=== PATIENT | male | born 1980 | race Caucasian/White ===

== ENCOUNTER 2016-05-09 | Emergency (ER) | payer SELFPAY ==
--- NOTE | 2016-05-09 23:11 | ED ---
Skin/Abscess/FB HPI - General Chief complaint: Skin/Abscess/Foreign Body Stated complaint: Leg/Cysts Time Seen by Provider: 05/09/16 23:02 Source: patient, RN notes reviewed Mode of arrival: ambulatory Limitations: no limitations - History of Present Illness Initial comments: Patient is a 35-year-old male presents to the emergency room for evaluation of left groin abscess. Patient states he noticed a small lump forming in his right groin about a week ago and a few days later he noticed a lump forming in his left groin area. Patient states the lump in his left groin has gotten larger and more red and more painful to palpate. Patient denies any history of abscesses. Patient denies history of MRSA. Patient denies any fevers or chills. Patient states he's having significant pain when he presses over the area or when he is standing and walking. Patient denies any other symptoms or complaints. Patient denies taking anything for pain. - Related Data Home Medications Medication Instructions Recorded Confirmed Aspirin/Acetaminophen/Caffeine 1 - 2 tab PO BID PRN 05/09/16 05/09/16 [Excedrin Migraine Caplet] D-Methorphan/Acetamin/Doxylamn 5 ml PO Q6H PRN 05/09/16 05/09/16 [Vicks Nyquil Cold & Flu Liquid] Phenylephrine/Dm/Acetaminop/GG 5 ml PO Q6H PRN 05/09/16 05/09/16 [Vicks Dayquil Severe Cold-Flu] Previous Rx's Medication Instructions Recorded HYDROcodone/APAP 5-325MG [[place] 1 tab PO Q6HR PRN #15 tab 05/09/16 5-325] Sulfamethox-Tmp 800-160Mg [Bactrim 2 each PO Q12HR #56 tab 05/09/16 Ds] Allergies Allergy/AdvReac Type Severity Reaction Status Date / Time No Known Allergies Allergy Verified 05/09/16 23:05 Review of Systems ROS Statement: Those systems with pertinent positive or pertinent negative responses have been documented in the HPI. ROS Other: All systems not noted in ROS Statement are negative. Past Medical History Past Medical History: No Reported History History of Any Multi-Drug Resistant Organisms: None Reported Past Surgical History: No Surgical Hx Reported Past Psychological History: Anxiety Smoking Status: Current every day smoker Past Alcohol Use History: None Reported Past Drug Use History: Marijuana General Exam - General Exam Comments Initial Comments: Sitting in exam room, no acute distress. Limitations: no limitations General appearance: alert, in no apparent distress Head exam: Present: atraumatic, normocephalic, normal inspection Eye exam: Present: normal appearance ENT exam: Present: normal exam Neck exam: Present: normal inspection Respiratory exam: Present: normal lung sounds bilaterally. Absent: respiratory distress Cardiovascular Exam: Present: regular rate, normal rhythm, normal heart sounds Back exam: Present: normal inspection Neurological exam: Present: alert, oriented X3, CN II-XII intact, normal gait Psychiatric exam: Present: normal affect, normal mood Skin exam: Present: warm, dry, intact, other (2 cm abscess in left medial upper thigh. Fluctuance on palpation. No surrounding erythema. No drainage noted.) Course Vital Signs 05/09/16 05/09/16 22:44 23:58 Temperature 97.3 F L 97.6 F Pulse Rate 74 75 Respiratory 18 18 Rate Blood Pressure 128/68 114/85 O2 Sat by Pulse 96 96 Oximetry Procedures - Incision & Drainage Consent Obtained: verbal consent Site: other (left groin) Size (cm): 2 Anesthetic Used: lidocaine 1% Amount (mLs): 2 I&D Cleaning Method: Betadine Sterile Field Used?: No Scalpel Used: #11 I&D Drainage Obtained: Pus, Blood Patient Tolerated Procedure: well, no complications Medical Decision Making - Medical Decision Making Patient is a 35 -year-old male since emergency room for evaluation of left upper thigh abscess. Abscess was incised and drained. Patient placed on antibiotics. Advised patient to follow-up with his primary care provider for reevaluation in 1 to 2 days. Patient states he understands everything that was discussed with him. Return parameters discussed. Case discussed with Dr. Christian. Disposition Clinical Impression: Abscess of left groin Disposition: HOME SELF-CARE Condition: Good Instructions: Abscess Incision and Drainage (ED), Abscess (ED) Additional Instructions: Warm compresses. Take antibiotics as directed. Please follow up with primary care provider in 1-2 days for reevaluation. If any new symptom arises, symptoms worsen or fever develops, return to ER as soon as possible. Prescriptions: HYDROcodone/APAP 5-325MG [[place] 5-325] 1 tab PO Q6HR PRN #15 tab PRN Reason: Pain Sulfamethox-Tmp 800-160Mg [Bactrim Ds] 2 each PO Q12HR #56 tab Referrals: None,Stated [Primary Care Provider] - 1-2 days Time of Disposition: 23:37
== END 2016-05-10 00:11 | disposition home or self-care (01) ==
CPT/HCPCS: 10060; 99282

== ENCOUNTER 2016-06-05 20:42 | Emergency (ER) | payer SELFPAY ==
--- NOTE | 2016-06-05 21:27 | ED ---
Fever HPI - General Chief Complaint: Fever Stated Complaint: Fever Time Seen by Provider: 06/05/16 21:11 Source: patient, RN notes reviewed Mode of arrival: ambulatory Limitations: no limitations - History of Present Illness Initial Comments: 35-year-old male presents emergency Department chief complaint fever. Patient states that he's had fever, body aches, congestion last 24 hours. Patient states is taking acetaminophen and some [id number] cough and cold medications. Patient denies any sick contacts. Patient states she has no shortness of breath this time. States his cough is productive. Patient denies ear pain, sore throat. Patient denies any neck pain or neck stiffness. Patient denies any abdominal or GI symptoms. - Related Data Home Medications Medication Instructions Recorded Confirmed Aspirin/Acetaminophen/Caffeine 1 tab PO BID PRN 05/09/16 06/05/16 [Excedrin Migraine Caplet] D-Methorphan/PE/Acetaminophen 1 tab PO DAILY PRN 06/05/16 06/05/16 [Tylenol Cold Max Day Caplet] Previous Rx's Medication Instructions Recorded Oseltamivir [Tamiflu] 75 mg PO Q12HR #10 cap 06/05/16 Allergies Allergy/AdvReac Type Severity Reaction Status Date / Time No Known Allergies Allergy Verified 06/05/16 21:02 Review of Systems ROS Statement: Those systems with pertinent positive or pertinent negative responses have been documented in the HPI. ROS Other: All systems not noted in ROS Statement are negative. Past Medical History Past Medical History: No Reported History History of Any Multi-Drug Resistant Organisms: None Reported Past Surgical History: No Surgical Hx Reported Past Psychological History: Anxiety Smoking Status: Current every day smoker Past Alcohol Use History: None Reported Past Drug Use History: None Reported General Exam Limitations: no limitations General appearance: alert, in no apparent distress Head exam: Present: atraumatic, normocephalic, normal inspection Eye exam: Present: normal appearance, PERRL, EOMI. Absent: scleral icterus, conjunctival injection, periorbital swelling ENT exam: Present: normal exam, normal oropharynx, mucous membranes moist, TM's normal bilaterally Neck exam: Present: normal inspection, full ROM. Absent: tenderness, meningismus, lymphadenopathy Respiratory exam: Present: normal lung sounds bilaterally. Absent: respiratory distress, wheezes, rales, rhonchi, stridor Cardiovascular Exam: Present: normal rhythm, tachycardia, normal heart sounds. Absent: systolic murmur, diastolic murmur, rubs, gallop, clicks GI/Abdominal exam: Present: soft, normal bowel sounds. Absent: distended, tenderness, guarding, rebound, rigid Back exam: Absent: CVA tenderness (R), CVA tenderness (L) Neurological exam: Present: alert, oriented X3, CN II-XII intact Skin exam: Present: warm, dry, intact, normal color. Absent: rash Course Vital Signs 06/05/16 06/05/16 20:48 21:15 Temperature 99.9 F H Pulse Rate 108 H Respiratory 18 18 Rate Blood Pressure 128/71 O2 Sat by Pulse 95 Oximetry Medical Decision Making - Medical Decision Making 35-year-old male presented for fever cough congestion. Patient has influenza A. Disposition Clinical Impression: Influenza A Disposition: HOME SELF-CARE Condition: Stable Instructions: Influenza (ED) Additional Instructions: Please return to the Emergency Department if symptoms worsen or any other concerns. Prescriptions: Oseltamivir [Tamiflu] 75 mg PO Q12HR #10 cap Time of Disposition: 21:33
--- NOTE | 2016-06-05 21:45 | XR ---
EXAMINATION TYPE: XR chest 2V DATE OF EXAM: 06/05/2016 9:32 PM COMPARISON: NONE HISTORY: Cough TECHNIQUE: Frontal and lateral views of the chest are obtained. FINDINGS: There is no focal air space opacity, pleural effusion, or pneumothorax seen. The cardiac silhouette size is within normal limits. The osseous structures are intact. IMPRESSION: No acute cardiopulmonary process.
[2016-06-05 23:19] VITALS: BP 117/70; PULSE 105; RESP 16; TEMP 102
== END 2016-06-05 21:46 | disposition home or self-care (01) ==
LOC: EC 20:42
DX: J11.1 Influenza due to unidentified influenza virus with other respiratory manifestations (principal); Z79.899 Other long term (current) drug therapy; F17.200 Nicotine dependence, unspecified, uncomplicated
CPT/HCPCS: 71020; 87502; 99283

== ENCOUNTER 2016-10-19 17:04 | Emergency (ER) | payer BC ==
[2016-10-19 17:17] VITALS: BP 126/78; PULSE 88; RESP 18; TEMP 97.2
[2016-10-19] MEDS ORDERED: IBUPROFEN 600 MG STARTER PACK 4 TAB BTL PO STA (17:29)
--- NOTE | 2016-10-19 17:29 | ED ---
Skin/Abscess/FB HPI - General Chief complaint: Skin/Abscess/Foreign Body Stated complaint: bug bites Time Seen by Provider: 10/19/16 17:23 Source: patient, RN notes reviewed Mode of arrival: ambulatory Limitations: no limitations - History of Present Illness Initial comments: 35-year-old male presents emergency Department chief complaint of bug bite to the left ankle. Patient states it started yesterday. Patient states he had some drainage from it today. Patient states that he has noticed some pain to the area. Patient states it looked like a bug bite and then yesterday got a little more red and swollen so he was concerned. Patient denies any history of MRSA or anything like this in the past. Patient denies any recent fever, chills , shortness of breath, chest pain, back pain, abdominal pain, nausea vomiting, numbness or tingling, dysuria or hematuria, constipation or diarrhea, headaches or visual changes, or any other current symptoms. - Related Data Home Medications Medication Instructions Recorded Confirmed Aspirin/Acetaminophen/Caffeine 1 tab PO BID PRN 05/09/16 06/05/16 [Excedrin Migraine Caplet] D-Methorphan/PE/Acetaminophen 1 tab PO DAILY PRN 06/05/16 06/05/16 [Tylenol Cold Max Day Caplet] Previous Rx's Medication Instructions Recorded Oseltamivir [Tamiflu] 75 mg PO Q12HR #10 cap 06/05/16 Cephalexin [Keflex] 500 mg PO Q6HR #40 cap 10/19/16 Allergies Allergy/AdvReac Type Severity Reaction Status Date / Time No Known Allergies Allergy Verified 10/19/16 17:17 Review of Systems ROS Statement: Those systems with pertinent positive or pertinent negative responses have been documented in the HPI. ROS Other: All systems not noted in ROS Statement are negative. Past Medical History Past Medical History: No Reported History History of Any Multi-Drug Resistant Organisms: None Reported Past Surgical History: No Surgical Hx Reported Past Psychological History: Anxiety Smoking Status: Current every day smoker Past Alcohol Use History: None Reported Past Drug Use History: None Reported General Exam - General Exam Comments Initial Comments: General: The patient is awake and alert, in no distress, and does not appear acutely ill. Neck: The neck is supple, there is no tenderness. Cardiovascular: There is a regular rate and rhythm. No murmur, rub or gallop is appreciated. Respiratory: Lungs are clear to auscultation, respirations are non-labored, breath sounds are equal. No wheezes, stridor, rales, or rhonchi. Musculoskeletal: Sensation intact. 2+ pulses of the left lower extremity. Full range of motion of left knee and left ankle. Patient does appear to have a regular place of erythema to the anterior left simpson that does appear to be cellulitic. Neurological: CN II-XII intact, There are no obvious motor or sensory deficits. Coordination appears grossly intact. Speech is normal. Skin: Skin is warm and dry and no rashes or lesions are noted. Psychiatric: Normal mood and affect. Limitations: no limitations Course Vital Signs 10/19/16 17:14 Temperature 97.2 F L Pulse Rate 88 Respiratory 18 Rate Blood Pressure 126/78 O2 Sat by Pulse 98 Oximetry Medical Decision Making - Medical Decision Making 35-year-old male presents emergency Department with chief complaint of left insect bite but does appear to have infection. This time we will start the patient on antibiotics. We discussed care follow-up return parameters. Patient states that he stated he understood. pt will Discharged home. Disposition Clinical Impression: Infected insect bite Disposition: HOME SELF-CARE Condition: Stable Instructions: Insect Bite or Sting (ED) Additional Instructions: Please use medication as discussed. Please follow up with family doctor if symptoms have not improved over the next two days. Please return to the emergency room if your symptoms increase or worsen or for any other concerns. Prescriptions: Cephalexin [Keflex] 500 mg PO Q6HR #40 cap Referrals: Nhung Kramer MD [STAFF PHYSICIAN] - 1-2 days Time of Disposition: 17:29
== END 2016-10-19 17:30 | disposition home or self-care (01) ==
LOC: EC 17:04
DX: S90.562A Insect bite (nonvenomous), left ankle, initial encounter (principal); L08.9 Local infection of the skin and subcutaneous tissue, unspecified; F17.200 Nicotine dependence, unspecified, uncomplicated; W57.XXXA Bitten or stung by nonvenomous insect and other nonvenomous arthropods, initial encounter
CPT/HCPCS: 99282

== ENCOUNTER 2016-10-23 20:12 | Emergency (ER) | payer BC ==
[2016-10-23] MEDS ORDERED: cefTRIAXone 1,000 MG VIAL (IM USE) IM STA (21:11)
[2016-10-23] MEDS ORDERED: SULFAMETH-TMP DS STARTER PACK 2 TAB BTL PO STA (21:11)
--- NOTE | 2016-10-23 21:12 | ED ---
Skin/Abscess/FB HPI - General Chief complaint: Skin/Abscess/Foreign Body Stated complaint: insect bite Time Seen by Provider: 10/23/16 20:46 Source: patient, RN notes reviewed, old records reviewed Mode of arrival: ambulatory Limitations: no limitations - History of Present Illness Initial comments: This is a 35 year old male with CC of a bug bite on right bicep for one day. Patient reports that over the past 12 hours he has noticed the redness starting to spread. He reports he was seen on of last week for a similiar complaint of a infected bite over the left leg. Patient states that he is taking keflex at this time. Patient states he still has more of the prescripiton left. Patient denies any fever, chills, chest pain, peripheral paresthesias, decreaed range of motion. - Related Data Home Medications Medication Instructions Recorded Confirmed Aspirin/Acetaminophen/Caffeine 1 tab PO BID PRN 05/09/16 10/23/16 [Excedrin Migraine Caplet] Previous Rx's Medication Instructions Recorded Cephalexin [Keflex] 500 mg PO Q6HR #40 cap 10/19/16 Sulfamethox-Tmp 800-160Mg [Bactrim 2 tab PO Q12HR #40 tab 10/23/16 DS 800-160 mg] Allergies Allergy/AdvReac Type Severity Reaction Status Date / Time No Known Allergies Allergy Verified 10/23/16 20:56 Review of Systems ROS Statement: Those systems with pertinent positive or pertinent negative responses have been documented in the HPI. ROS Other: All systems not noted in ROS Statement are negative. Past Medical History Past Medical History: No Reported History History of Any Multi-Drug Resistant Organisms: None Reported Past Surgical History: No Surgical Hx Reported Past Psychological History: Anxiety Smoking Status: Current every day smoker Past Alcohol Use History: Occasional Past Drug Use History: None Reported General Exam Limitations: no limitations General appearance: alert, in no apparent distress Head exam: Present: atraumatic, normocephalic, normal inspection Eye exam: Present: normal appearance, PERRL, EOMI. Absent: scleral icterus, conjunctival injection, periorbital swelling ENT exam: Present: normal exam, mucous membranes moist Neck exam: Present: normal inspection. Absent: tenderness, meningismus, lymphadenopathy Respiratory exam: Present: normal lung sounds bilaterally. Absent: respiratory distress, wheezes, rales, rhonchi, stridor Cardiovascular Exam: Present: regular rate, normal rhythm, normal heart sounds. Absent: systolic murmur, diastolic murmur, rubs, gallop, clicks GI/Abdominal exam: Present: soft, normal bowel sounds. Absent: distended, tenderness, guarding, rebound, rigid Extremities exam: Present: normal inspection, full ROM, normal capillary refill , other (right bicep has area of erythema measuring 6cm in circumference. No lymphangitic streaking. ). Absent: tenderness, pedal edema, joint swelling, calf tenderness Back exam: Present: normal inspection Neurological exam: Present: alert, oriented X3, CN II-XII intact Psychiatric exam: Present: normal affect, normal mood Skin exam: Present: warm, dry, intact, normal color. Absent: rash Course Vital Signs 10/23/16 10/23/16 10/23/16 20:15 20:25 21:24 Temperature 97.4 F L 97.4 F L 98.0 F Pulse Rate 85 65 Respiratory 20 17 Rate Blood Pressure 128/83 135/77 O2 Sat by Pulse 96 Oximetry Medical Decision Making - Medical Decision Making This is a 35 year old male with CC of a bug bite on right bicep for one day. Patient reports that over the past 12 hours he has noticed the redness starting to spread. He reports he was seen on of last week for a similiar complaint of a infected bite over the left leg. Patient states that he is taking keflex at this time. Patient states he still has more of the prescripiton left. Patient denies any fever, chills, chest pain, peripheral paresthesias, decreaed range of motion. PAtient given 1gm IM rocephin and started on DS bactrim. Discussed taking antibiotics and monitoring for worsening redness to return for IV antibiotics. Patient agrees to tretment plan and will comply. Disposition Clinical Impression: Right arm cellulitis Disposition: HOME SELF-CARE Condition: Good Instructions: Cellulitis (ED), Abscess (ED) Additional Instructions: resident Motrin or Tylenol for pain, apply warm compresses over the area. Return if the area of redness and swelling worsens. Return to emergency department if any alarming signs or symptoms occur. Prescriptions: Sulfamethox-Tmp 800-160Mg [Bactrim DS 800-160 mg] 2 tab PO Q12HR #40 tab Referrals: None,Stated [Primary Care Provider] - 1-2 days Nhung Kramer MD [STAFF PHYSICIAN] - 1-2 days Time of Disposition: 21:10
[2016-10-23 21:26] VITALS: BP 135/77; PULSE 65; RESP 17; TEMP 98
== END 2016-10-23 21:49 | disposition home or self-care (01) ==
LOC: EC 20:12
DX: L03.113 Cellulitis of right upper limb (principal); F17.200 Nicotine dependence, unspecified, uncomplicated; W57.XXXA Bitten or stung by nonvenomous insect and other nonvenomous arthropods, initial encounter
CPT/HCPCS: 99283; 96372; J0696

== ENCOUNTER 2017-01-09 21:38 | Emergency (ER) | payer BC, OTHER ==
[2017-01-09 21:46] VITALS: RESP 18
[2017-01-09] MEDS ORDERED: DIPH,PERTUS(ACELL)TETVAC-LF 0.5 ML VIAL IM ONE (21:59)
--- NOTE | 2017-01-09 21:59 | ED ---
General Adult HPI - General Chief complaint: Extremity Injury, Upper Stated complaint: hand injury Time Seen by Provider: 01/09/17 21:47 Source: patient, RN notes reviewed Mode of arrival: ambulatory Limitations: no limitations - History of Present Illness Initial comments: 36 yo male presents to ER with cc of left hand pinching type injury. 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 He states he now has pain to his left hand. Full range motion of the fingers no numbness and tingling. Patient states he doesn't recall his last tetanus. Patient was concerned due to his pain and swelling of his hands without that he should be seen. Patient denies any other symptoms at this time. Patient denies any recent fever, chills, shortness of breath, chest pain, back pain, abdominal pain, nausea vomiting, numbness or tingling, dysuria or hematuria, constipation or diarrhea, headaches or visual changes, or any other current symptoms. - Related Data Home Medications Medication Instructions Recorded Confirmed No Known Home Medications [No 01/09/17 01/09/17 Known Home Medications] Allergies Allergy/AdvReac Type Severity Reaction Status Date / Time No Known Allergies Allergy Verified 01/09/17 22:05 Review of Systems ROS Statement: Those systems with pertinent positive or pertinent negative responses have been documented in the HPI. ROS Other: All systems not noted in ROS Statement are negative. Past Medical History Past Medical History: No Reported History History of Any Multi-Drug Resistant Organisms: None Reported Past Surgical History: No Surgical Hx Reported Past Psychological History: Anxiety Smoking Status: Current every day smoker Past Alcohol Use History: Occasional Past Drug Use History: None Reported General Exam - General Exam Comments Initial Comments: General: The patient is awake and alert, in no distress, and does not appear acutely ill. Neck: The neck is supple, there is no tenderness. Cardiovascular: There is a regular rate and rhythm. No murmur, rub or gallop is appreciated. Respiratory: Lungs are clear to auscultation, respirations are non-labored, breath sounds are equal. No wheezes, stridor, rales, or rhonchi. Musculoskeletal: Sensation intact with 2+ pulses of upper Left extremity. Full range of motion of the left hand and left wrist. Small abrasion to the top left hand with associated swelling. Neurological: CN II-XII intact, There are no obvious motor or sensory deficits. Coordination appears grossly intact. Speech is normal. Skin: Skin is warm and dry and no rashes or lesions are noted. Psychiatric: Normal mood and affect. Limitations: no limitations Course Vital Signs 01/09/17 21:42 Temperature 97.5 F L Pulse Rate 92 Respiratory 18 Rate Blood Pressure 123/83 O2 Sat by Pulse 97 Oximetry Procedures - Orthopedic Splinting/Casting Injury #1 Side: right Upper Extremity Injury Location: hand Upper Extremity Immobilizer: Nacho wrap Medical Decision Making - Medical Decision Making 36-year-old male presents for left hand pain after a crush type injury. At this time patient appears to have an abrasion. Patient underwent an x-ray of the left hand. X-ray of the left hand is reviewed and negative. This time we discussed icing the area. Motrin Tylenol for pain. We discussed return parameters and follow-up and all the patient's and family's questions. They state Jewel they are in agreement with plan. They will be discharged home. - Radiology Data Radiology results: report reviewed, image reviewed Disposition Clinical Impression: Contusion of left hand, Abrasion of left hand Disposition: HOME SELF-CARE Condition: Stable Instructions: Contusion in Adults (ED) Additional Instructions: Please use medication as discussed. Please follow up with family doctor if symptoms have not improved over the next two days. Please return to the emergency room if your symptoms increase or worsen or for any other concerns. Referrals: Alanna Stubbs MD [STAFF PHYSICIAN] - 1-2 days Time of Disposition: 22:09
--- NOTE | 2017-01-09 22:06 | XR ---
EXAMINATION TYPE: XR hand complete LT DATE OF EXAM: 01/09/2017 CLINICAL HISTORY: pain TECHNIQUE: Frontal, lateral and oblique images of the left hand are obtained. COMPARISON: None. FINDINGS: There is no acute fracture/dislocation evident. The joint spaces appear within normal limi ts. The overlying soft tissue appears unremarkable. IMPRESSION: There is no acute fracture or dislocation. ICD 10 NO FRACTURE, INITIAL EVALUATION
[2017-01-09 22:40] VITALS: BP 137/94; PULSE 79; TEMP 98.1
== END 2017-01-09 22:40 | disposition home or self-care (01) ==
LOC: EC 21:38
DX: S60.222A Contusion of left hand, initial encounter (principal); F17.200 Nicotine dependence, unspecified, uncomplicated; Z23 Encounter for immunization; W31.9XXA Contact with unspecified machinery, initial encounter; Y92.69 Other specified industrial and construction area as the place of occurrence of the external cause; Y99.0 Civilian activity done for income or pay
CPT/HCPCS: 90471; 90715; 99283

== ENCOUNTER 2017-06-10 12:23 | Emergency (ER) | payer OTHER ==
[2017-06-10 12:46] VITALS: BP 123/73; PULSE 93; RESP 20; TEMP 98.5
--- NOTE | 2017-06-10 13:25 | ED ---
General Adult HPI - General Chief complaint: Upper Respiratory Infection Stated complaint: Congestion/Eye Swelling Time Seen by Provider: 06/10/17 13:10 Source: patient, RN notes reviewed Mode of arrival: ambulatory Limitations: no limitations - History of Present Illness Initial comments: 36 yo male presents to the ER with cc of left eye redness and irritation. Patient states this started over the last few days. Patient states he's had drainage and cramping. Patient denies any changes in vision. She does admit to some congestion with this. He denies any fever chills. He denies any other symptoms at this time. Patient was concerned due to the continued redness and drainage so he thought that he should be seen. Patient denies any recent fever, chills, shortness of breath, chest pain, back pain, abdominal pain, nausea vomiting, numbness or tingling, dysuria or hematuria, constipation or diarrhea, headaches or visual changes, or any other current symptoms. - Related Data Previous Rx's Medication Instructions Recorded Tobramycin 0.3% Ophth Oint [Tobrex 1 applic LEFT EYE TID #1 tube 06/10/17 0.3% Ophth Oint] Allergies Allergy/AdvReac Type Severity Reaction Status Date / Time No Known Allergies Allergy Verified 06/10/17 12:46 Review of Systems ROS Statement: Those systems with pertinent positive or pertinent negative responses have been documented in the HPI. ROS Other: All systems not noted in ROS Statement are negative. Past Medical History Past Medical History: No Reported History History of Any Multi-Drug Resistant Organisms: None Reported Past Surgical History: No Surgical Hx Reported Past Psychological History: Anxiety Smoking Status: Current every day smoker Past Alcohol Use History: Occasional Past Drug Use History: None Reported General Exam Limitations: no limitations General appearance: alert, in no apparent distress Eye exam: Present: PERRL, EOMI, conjunctival injection (left eye with purulent drainage), periorbital swelling (left eye). Absent: normal appearance, scleral icterus, periorbital tenderness Pupils: Present: normal accommodation ENT exam: Present: normal exam, mucous membranes moist Neck exam: Present: normal inspection. Absent: tenderness, meningismus, lymphadenopathy Respiratory exam: Present: normal lung sounds bilaterally. Absent: respiratory distress, wheezes, rales, rhonchi, stridor Cardiovascular Exam: Present: regular rate, normal rhythm, normal heart sounds. Absent: systolic murmur, diastolic murmur, rubs, gallop, clicks Neurological exam: Present: alert, oriented X3 Skin exam: Present: warm, dry, intact, normal color. Absent: rash Course Vital Signs 06/10/17 06/10/17 12:44 13:13 Temperature 98.5 F Pulse Rate 93 Respiratory 20 20 Rate Blood Pressure 123/73 O2 Sat by Pulse 96 Oximetry Medical Decision Making - Medical Decision Making 36-year-old male presents with what appears the left eye conjunctivitis. This time we will start patient on eye ointment. We discussed follow-up return parameters all questions. Patient stated the [facility] management plan. This time he will be discharged home. Disposition Clinical Impression: Acute conjunctivitis, left eye Disposition: HOME SELF-CARE Condition: Stable Instructions: Conjunctivitis (ED) Additional Instructions: Please use medication as discussed. Please follow up with family doctor if symptoms have not improved over the next two days. Please return to the emergency room if your symptoms increase or worsen or for any other concerns. Prescriptions: Tobramycin 0.3% Ophth Oint [Tobrex 0.3% Ophth Oint] 1 applic LEFT EYE TID #1 tube Referrals: Kevyn Graves MD [REFERRING] - 1-2 days Time of Disposition: 13:25
== END 2017-06-10 13:30 | disposition home or self-care (01) ==
LOC: EC 12:23
DX: H10.32 Unspecified acute conjunctivitis, left eye (principal); R09.81 Nasal congestion; F17.200 Nicotine dependence, unspecified, uncomplicated
CPT/HCPCS: 99283

== ENCOUNTER 2018-08-14 16:58 | Emergency (ER) | payer OTHER ==
[2018-08-14 17:20] VITALS: TEMP 97.8
[2018-08-14 18:48] LABS: ALT 32 U/L (21-72); AST 22 U/L (17-59); Albumin 4.4 g/dL (3.5-5.0); Alkaline Phosphatase 63 U/L (38-126); Anion Gap 10 mmol/L; Basophils # (A) 0.1 k/uL (0-0.2); Basophils % (A) 1 %; Blood Urea Nitrogen 14 mg/dL (9-20); Calcium 9.4 mg/dL (8.4-10.2); Carbon Dioxide 22 mmol/L (22-30); Chloride 108 mmol/L (98-107); Eosinophils # (A) 0.4 k/uL (0-0.7); Eosinophils % (A) 3 %; Glucose 102 mg/dL (74-99); HCT 52.7 % (39.0-53.0); HGB 16.9 gm/dL (13.0-17.5); Lymphocytes # (A) 3.9 k/uL (1.0-4.8); Lymphocytes % (A) 31 %; MCH 29.4 pg (25.0-35.0); MCHC 32.1 g/dL (31.0-37.0); MCV 91.4 fL (80.0-100.0); Mean Platelet Volume 6.6; Monocytes # (A) 0.7 k/uL (0-1.0); Monocytes % (A) 6 %; Neutrophils # (A) 7.1 k/uL (1.3-7.7); Neutrophils % (A) 55 %; Platelet Count 337 k/uL (150-450); Potassium 4.6 mmol/L (3.5-5.1); RBC 5.76 m/uL (4.30-5.90); RDW 12.3 % (11.5-15.5); Sodium 140 mmol/L (137-145); Total Bilirubin 0.5 mg/dL (0.2-1.3); Total Protein 7.3 g/dL (6.3-8.2); WBC 12.9 k/uL (3.8-10.6)
--- NOTE | 2018-08-14 21:00 | ED ---
GI Bleed HPI - General Chief complaint: GI Bleed Stated complaint: Blood in stool Time Seen by Provider: 08/14/18 20:06 Source: patient Mode of arrival: ambulatory Limitations: no limitations - History of Present Illness Initial comments: 37-year-old male patient presents to the emergency department today for evaluation of rectal bleeding. Patient states her last couple weeks he has been having small amounts of bright red blood when he had bowel movements. Patient has a rectal pain or abdominal pain. He states that over the last 2 days the bleeding has become heavier. Patient states sustaining the toilet bowl red. States that he is still having solid bowel movements. Denies any dark or black stool. Denies any fever or chills with this. Denies any use of anti- inflammatory medications or anticoagulants. Denies a history of similar sympto ms. Denies any dizziness or weakness. Denies chest pain or shortness of breath. Patient denies any recent rash, fever, chills, nausea, vomiting, diarrhea, constipation, back pain, numbness, tingling, hematuria, dysuria, urinary urgency, urinary frequency, headache, visual changes, or any other com plaints. - Related Data Home Medications Medication Instructions Recorded Confirmed [id number] 1 tab PO Q4HR PRN 08/14/18 08/14/18 [Excedrin] Allergies Allergy/AdvReac Type Severity Reaction Status Date / Time No Known Allergies Allergy Verified 08/14/18 20:06 Review of Systems ROS Statement: Those systems with pertinent positive or pertinent negative responses have been documented in the HPI. ROS Other: All systems not noted in ROS Statement are negative. Past Medical History Past Medical History: No Reported History History of Any Multi-Drug Resistant Organisms: None Reported Past Surgical History: No Surgical Hx Reported Past Psychological History: Anxiety Smoking Status: Current every day smoker Past Alcohol Use History: Occasional Past Drug Use History: Marijuana General Exam Limitations: no limitations General appearance: alert, in no apparent distress, other (Physical well- developed, well-nourished adult male patient in no acute distress. Vital signs upon presentation are temperature 97.8F, pulse 89, respirations 20, blood pressure 124/85, pulse ox 99% on room air.) Eye exam: Present: normal appearance, PERRL, EOMI. Absent: scleral icterus, conjunctival injection, periorbital swelling ENT exam: Present: normal exam, normal oropharynx, mucous membranes moist Respiratory exam: Present: normal lung sounds bilaterally. Absent: respiratory distress, wheezes, rales, rhonchi, stridor Cardiovascular Exam: Present: regular rate, normal rhythm, normal heart sounds. Absent: systolic murmur, diastolic murmur, rubs, gallop, clicks GI/Abdominal exam: Present: soft, normal bowel sounds. Absent: distended, tenderness, guarding, rebound, rigid Rectal exam: Present: normal inspection. Absent: hemorrhoids, mass, tenderness Neurological exam: Present: alert, oriented X3, CN II-XII intact Psychiatric exam: Present: normal affect, normal mood Skin exam: Present: warm, dry, intact, normal color. Absent: rash Course Vital Signs 08/14/18 08/14/18 17:18 21:14 Temperature 97.8 F Pulse Rate 89 88 Respiratory 20 16 Rate Blood Pressure 124/85 126/78 O2 Sat by Pulse 99 99 Oximetry Medical Decision Making - Medical Decision Making 37-year-old male patient presents to the emergency department today for evaluat ion of rectal bleeding. Physical examination is unremarkable. Abdomen is soft and nontender. Patient reports no abdominal pain, fever, or chills. Denies any history of similar symptoms. Vital signs are stable, labs reviewed and are unremarkable. Did discuss findings and results with the patient. Be discharged home to follow-up with gastroenterology. States he does have a primary care physician but has not yet seen them, he was recommended to another one in case he is unable to get in. Return parameters were discussed in detail. He verbalizes understanding and agrees with this plan - Lab Data Result diagrams: 08/14/18 18:24 08/14/18 18:24 Lab Results 08/14/18 08/14/18 08/14/18 Range/Units 18:24 18:24 18:24 WBC 12.9 H (3.8-10.6) k/uL RBC 5.76 (4.30-5.90) m/uL Hgb 16.9 (13.0-17.5) gm/dL Hct 52.7 (39.0-53.0) % MCV 91.4 (80.0-100.0) fL MCH 29.4 (25.0-35.0) pg MCHC 32.1 (31.0-37.0) g/dL RDW 12.3 (11.5-15.5) % Plt Count 337 (150-450) k/uL Neutrophils % 55 % Lymphocytes % 31 % Monocytes % 6 % Eosinophils % 3 % Basophils % 1 % Neutrophils # 7.1 (1.3-7.7) k/uL Lymphocytes # 3.9 (1.0-4.8) k/uL Monocytes # 0.7 (0-1.0) k/uL Eosinophils # 0.4 (0-0.7) k/uL Basophils # 0.1 (0-0.2) k/uL APTT 24.0 (22.0-30.0) sec Sodium 140 (137-145) mmol/L Potassium 4.6 (3.5-5.1) mmol/L Chloride 108 H (98-107) mmol/L Carbon Dioxide 22 (22-30) mmol/L Anion Gap 10 mmol/L BUN 14 (9-20) mg/dL Creatinine 0.73 (0.66-1.25) mg/dL Est GFR (CKD-EPI)AfAm >90 (>60 ml/min/1.73 sqM) Est GFR (CKD-EPI)NonAf >90 (>60 ml/min/1.73 sqM) Glucose 102 H (74-99) mg/dL Calcium 9.4 (8.4-10.2) mg/dL Total Bilirubin 0.5 (0.2-1.3) mg/dL AST 22 (17-59) U/L ALT 32 (21-72) U/L Alkaline Phosphatase 63 (38-126) U/L Troponin I (0.000-0.034) ng/mL Total Protein 7.3 (6.3-8.2) g/dL Albumin 4.4 (3.5-5.0) g/dL 08/14/18 Range/Units 18:24 WBC (3.8-10.6) k/uL RBC (4.30-5.90) m/uL Hgb (13.0-17.5) gm/dL Hct (39.0-53.0) % MCV (80.0-100.0) fL MCH (25.0-35.0) pg MCHC (31.0-37.0) g/dL RDW (11.5-15.5) % Plt Count (150-450) k/uL Neutrophils % % Lymphocytes % % Monocytes % % Eosinophils % % Basophils % % Neutrophils # (1.3-7.7) k/uL Lymphocytes # (1.0-4.8) k/uL Monocytes # (0-1.0) k/uL Eosinophils # (0-0.7) k/uL Basophils # (0-0.2) k/uL APTT (22.0-30.0) sec Sodium (137-145) mmol/L Potassium (3.5-5.1) mmol/L Chloride (98-107) mmol/L Carbon Dioxide (22-30) mmol/L Anion Gap mmol/L BUN (9-20) mg/dL Creatinine (0.66-1.25) mg/dL Est GFR (CKD-EPI)AfAm (>60 ml/min/1.73 sqM) Est GFR (CKD-EPI)NonAf (>60 ml/min/1.73 sqM) Glucose (74-99) mg/dL Calcium (8.4-10.2) mg/dL Total Bilirubin (0.2-1.3) mg/dL AST (17-59) U/L ALT (21-72) U/L Alkaline Phosphatase (38-126) U/L Troponin I <0.012 (0.000-0.034) ng/mL Total Protein (6.3-8.2) g/dL Albumin (3.5-5.0) g/dL Disposition Clinical Impression: GI bleed Disposition: HOME SELF-CARE Condition: Good Instructions (If sedation given, give patient instructions): Gastrointestinal Bleeding (ED) Additional Instructions: Increase fluids. Follow-up with primary care physician and java architect for recheck as soon as possible. Return to the emergency department immediately for any new, worsening, or concerning symptoms. Is patient prescribed a controlled substance at d/c from ED?: No Referrals: Sheng Herr MD [STAFF PHYSICIAN] - 1-2 days James Martinez MD [STAFF PHYSICIAN] - 1-2 days Time of Disposition: 21:00
[2018-08-14 21:15] VITALS: BP 126/78; PULSE 88; RESP 16
== END 2018-08-14 21:10 | disposition home or self-care (01) ==
LOC: EC 16:58
DX: K92.2 Gastrointestinal hemorrhage, unspecified (principal); F17.200 Nicotine dependence, unspecified, uncomplicated
CPT/HCPCS: 36415; 80053; 84484; 85025; 85730; 99284

== ENCOUNTER 2019-05-21 17:29 | Emergency (ER) | payer OTHER ==
[2019-05-21] MEDS ORDERED: KETOROLAC 30 MG/ML 1 ML VIAL IM STA (18:05)
[2019-05-21] MEDS ORDERED: DEXAMETHASONE SOD PHOSPHATE 10 MG/ML 1 ML VIAL IM STA (18:06)
[2019-05-21] MEDS ORDERED: ORPHENADRINE 30 MG/ML 2 ML VIAL IM STA (18:06)
--- NOTE | 2019-05-21 18:21 | ED ---
Extremity Problem HPI - General Chief complaint: Extremity Problem,Nontraumatic Stated complaint: Shoulder and arm pain Time Seen by Provider: 05/21/19 17:44 Source: patient Mode of arrival: ambulatory Limitations: no limitations - History of Present Illness Initial comments: 38-year-old male patient presents to the emergency department today for evaluat ion of right shoulder pain. Patient states his been having pain to the right shoulder for the last couple of weeks. Patient states over the last couple of days the pain has worsened. States that it hurts with any type of movement. States the pain radiates into his neck and down his arm. States that he generally has some numbness and tingling to the fingers on the right hand. He denies any known injury. Denies any chest pain or shortness of breath. Denies fever or chills. Patient does have history of psoriasis does not take any medications for this at this time. Patient denies any recent abdominal pain, nausea, vomiting, diarrhea, constipation, back pain, dizziness, weakness, hematuria, dysuria, urinary urgency, urinary frequency, headache, visual changes, or any other complaints. - Related Data Home Medications Medication Instructions Recorded Confirmed [id number] 1 tab PO Q4HR PRN 08/14/18 08/14/18 [Excedrin] Previous Rx's Medication Instructions Recorded Cyclobenzaprine [Flexeril] 10 mg PO TID #15 tab 05/21/19 Ibuprofen [Motrin] 600 mg PO Q8HR PRN #30 tab 05/21/19 methylPREDNISolone [Medrol Dose 4 mg PO DIRECTED #1 pack 05/21/19 Pack] Allergies Allergy/AdvReac Type Severity Reaction Status Date / Time No Known Allergies Allergy Verified 05/21/19 17:35 Review of Systems ROS Statement: Those systems with pertinent positive or pertinent negative responses have been documented in the HPI. ROS Other: All systems not noted in ROS Statement are negative. Past Medical History Past Medical History: No Reported History History of Any Multi-Drug Resistant Organisms: None Reported Past Surgical History: No Surgical Hx Reported Past Psychological History: Anxiety Smoking Status: Current every day smoker Past Alcohol Use History: Occasional Past Drug Use History: Marijuana General Exam Limitations: no limitations General appearance: alert, in no apparent distress, other (This is a well- developed, well-nourished adult male patient in no acute distress. Vital signs upon presentation are temperature 97.6F, pulse 95, respirations 20, blood pressure 116/60, pulse ox 99% on room air) Neck exam: Present: normal inspection, full ROM. Absent: tenderness, meningismus, lymphadenopathy Respiratory exam: Present: normal lung sounds bilaterally. Absent: respiratory distress, wheezes, rales, rhonchi, stridor Cardiovascular Exam: Present: regular rate, normal rhythm, normal heart sounds. Absent: systolic murmur, diastolic murmur, rubs, gallop, clicks Extremities exam: Present: normal inspection, normal capillary refill, other (Skin to the right arm is pink, warm, dry. Cap refills less than 3 seconds. Radial pulses 2+ and equal bilaterally. There is a psoriatic patch to the right elbow.). Absent: full ROM (Decreased range of motion due to increased pain with movement), tenderness, pedal edema, joint swelling, calf tenderness Neurological exam: Present: alert, oriented X3, CN II-XII intact Psychiatric exam: Present: normal affect, normal mood Skin exam: Present: warm, dry, intact, normal color. Absent: rash Course Vital Signs 05/21/19 05/21/19 17:31 18:57 Temperature 97.6 F 98.1 F Pulse Rate 95 79 Respiratory 20 18 Rate Blood Pressure 116/60 124/78 O2 Sat by Pulse 99 97 Oximetry Medical Decision Making - Medical Decision Making 38-year-old male patient presents to the emergency department today for evaluation of right shoulder neck pain. Patient states pain has been gradually worsening over the last 2 weeks. Pain significantly increases with any movement of the right arm. Denies shortness of breath or chest pain. Denies any dizziness or weakness. Denies any known injury. X-rays were obtained of the neck and shoulder which were negative. Patient did receive anti-inflammatory muscle relaxer here in the emergency department. Upon reevaluation he does report significant improvement of symptoms. We discharged with prescriptions for ibuprofen, Flexeril, and Medrol Dosepak. Is instructed to follow-up with his primary care physician for recheck in 1-2 days. If symptoms aren't improved he is instructed to get an MRI. Return parameters were discussed in detail. He verbalizes understanding and agrees with this plan. - Radiology Data Radiology results: report reviewed, image reviewed Disposition Clinical Impression: Muscle spasm, Cervical radiculopathy Disposition: HOME SELF-CARE Condition: Good Instructions (If sedation given, give patient instructions): Cervical Radiculopathy (ED), Muscle Spasm (ED) Additional Instructions: Take medications as directed. Alternate ice and heat to the painful areas. Perform gentle range of motion exercises. Follow up with your primary care physician for recheck in 1-2 days. Discussed MRI symptoms aren't improved. Return to the emergency department immediately for any new, worsening, or concerning symptoms. Prescriptions: Cyclobenzaprine [Flexeril] 10 mg PO TID #15 tab methylPREDNISolone [Medrol Dose Pack] 4 mg PO DIRECTED #1 pack Ibuprofen [Motrin] 600 mg PO Q8HR PRN #30 tab PRN Reason: Pain Is patient prescribed a controlled substance at d/c from ED?: No Referrals: Razia Manning MD [Primary Care Provider] - 1-2 days Time of Disposition: 19:40
[2019-05-21 18:58] VITALS: BP 124/78; PULSE 79; RESP 18; TEMP 98.1
--- NOTE | 2019-05-21 19:25 | XR ---
PROCEDURE: XR cervical spine comp - 5V DATE AND TIME: 05/21/2019 6:46 PM CLINICAL INDICATION: PHH; Radicular pain down right arm TECHNIQUE: Open mouth AP odontoid, bilateral oblique, AP and lateral views were obtained COMPARISON: None FINDINGS: There appears to be nonspecific soft tissue swelling posterior to the spine and within the bilateral infrahyoid soft tissues. There is nonspecific dextrocurvature of the cervical spine on the AP view. There is no fracture or malalignment. No bony neural foraminal narrowing. IMPRESSION: Negative for fracture or malalignment.
--- NOTE | 2019-05-21 19:26 | XR ---
PROCEDURE: XR shoulder complete RT - 3V DATE AND TIME: 05/21/2019 6:47 PM CLINICAL INDICATION: PHH; Radicular pain down right arm TECHNIQUE: Department protocol COMPARISON: None FINDINGS: There is no fracture or malalignment. The soft tissues are unremarkable. IMPRESSION: NO ACUTE PROCESS.
== END 2019-05-21 19:46 | disposition home or self-care (01) ==
LOC: EC 17:29
DX: M54.12 Radiculopathy, cervical region (principal); F17.200 Nicotine dependence, unspecified, uncomplicated
CPT/HCPCS: 72050; 73030; 99283; 96372 ×3; J1100; J2360; J1885

== ENCOUNTER 2021-09-14 10:16 | Emergency (ER) | payer BC, OTHER ==
[2021-09-14] MEDS ORDERED: LIDOCAINE 5% PATCH TOPICAL STA (13:11)
[2021-09-14 13:16] VITALS: BP 131/92; PULSE 94; RESP 18; TEMP 97.6
--- NOTE | 2021-09-14 13:16 | ED ---
General Adult HPI - General Chief complaint: Extremity Problem,Nontraumatic Stated complaint: Lt Leg Pain/Swelling Time Seen by Provider: 09/14/21 13:00 Source: patient Mode of arrival: ambulatory Limitations: no limitations - History of Present Illness Initial comments: Patient is a 40-year-old male with past medical history remarkable for no medical problems presents emergency Department complaining of left upper leg pain that has been ongoing for 1 month. Initially follow-up with PCP and received no imaging. Is requesting x-rays. Denies any obvious injury delaying. Does lift heavy objects at work. Describes the pain as over his left anterior thigh that does not radiate. Denies any radicular symptoms. Denies any saddle anesthesias, lower extremity weakness or numbness. Denies any urinary or bowel retention or incontinence. Presents for further evaluation at this time. Has no other acute complaints. He missed his orthopedic follow-up. - Related Data Previous Rx's Medication Instructions Recorded Lidocaine 5% Patch [Lidoderm 5% 1 patch TOPICAL DAILY PRN 7 Days 09/14/21 Patch] #7 patch Allergies Allergy/AdvReac Type Severity Reaction Status Date / Time No Known Allergies Allergy Verified 09/14/21 13:48 Review of Systems ROS Statement: Those systems with pertinent positive or pertinent negative responses have been documented in the HPI. Review of Systems: CONST: Denies fever EYES: Denies blurry vision ENT: Denies nasal congestion C/V: Denies Chest pain RESP: Denies shortness of breath GI: Denies abdominal pain : Denies dysuria SKIN: Denies rash. MSK: Endorses left leg pain NEURO: Denies headache ROS Other: All systems not noted in ROS Statement are negative. Past Medical History Past Medical History: No Reported History History of Any Multi-Drug Resistant Organisms: None Reported Past Surgical History: No Surgical Hx Reported Past Psychological History: Anxiety Smoking Status: Current every day smoker Past Alcohol Use History: Occasional Past Drug Use History: Marijuana General Exam - General Exam Comments Initial Comments: General: Appears in no acute distress. HEAD: Normal with no signs of head trauma. EYES: PERRLA, EOMI, conjunctiva normal, no discharge. Pupils are 3 mm and equal bilaterally. ENT: Hearing grossly intact. RESPIRATORY: Clear breath sounds bilaterally. No wheezes, rales, or rhonchi. C/V: Regular rate and rhythm. S1 and S2 auscultated, no edema, peripheral pulses 2+ and intact throughout ABD: Abdomen is nondistended. EXT: Normal range of motion, no obvious deformity no midline cervical, thoracic, lumbar spine tenderness to palpation. Mild left hip tenderness to palpation. Primary tenderness is over the quadricep muscles of the left thigh in the mid thigh. Seems to extend towards the left hip. Normal range of motion. SKIN: No rashes or lesions observed on exposed skin. NEURO: Alert and oriented x 4. Cranial nerves II-XII intact. No focal sensory or strength deficits. Able to ambulate without difficulty. Limitations: no limitations Course Vital Signs 09/14/21 11:23 Temperature 97.6 F Pulse Rate 94 Respiratory 18 Rate Blood Pressure 131/92 O2 Sat by Pulse 96 Oximetry Medical Decision Making - Medical Decision Making Based on the patient's presentation and physical exam, I'm concerned for acute injury the patient's left thigh. Does do heavy lifting. Cannot rule out impingement syndrome versus muscle or bony injury. The patient x-rays which he accepted. X-ray of the femur, left hip, pelvis returned remarkable for bilateral femoral head impingement syndrome. Recommend outpatient follow-up with orthopedic surgery. I did discuss this with the patient. He did receive a lidocaine patch which improved his symptoms. He will be given a prescription. Already has orthopedic follow-up. I will provide the patient with a prescription for lidocaine patch. I instructed the patient to follow up with their PCP in the next 3 days. I explained that the patient should return to the emergency department if they experience any worsening symptoms. Strict return precautions were discussed with the patient. The patient expressed understanding of these instructions. I answered all questions that the patient had. The patient was discharged home in good condition with their prescriptions and follow up information. Disposition Clinical Impression: Leg pain Disposition: HOME SELF-CARE Condition: Good Additional Instructions: follow up with your orthopedic surgeon Prescriptions: Lidocaine 5% Patch [Lidoderm 5% Patch] 1 patch TOPICAL DAILY PRN 7 Days #7 patch PRN Reason: Pain Is patient prescribed a controlled substance at d/c from ED?: No Referrals: Razia Manning MD [Primary Care Provider] - 1-2 days Time of Disposition: 13:50
--- NOTE | 2021-09-14 13:50 | XR ---
EXAMINATION TYPE: AP view pelvis and 2 views left hip, XR femur 2 views LT DATE OF EXAM: 09/14/2021 Comparison: None Clinical History: 40-year-old male with swelling and pain Findings: Pelvis and left hip: There is mild degenerative change at both hips characterized by marginal spurring. Anterior superior femoral head neck junction osseous excrescences on both sides. Hip joint spaces relatively maintained at this time. No acute fracture, subluxation, dislocation. Left femur: No knee joint effusion. Knee articulation grossly intact. No acute fracture. Impression (pelvis, left hip, left femur). 1. Bilateral femoral head neck junction osseous excrescences which can result in femoral acetabular i mpingement syndrome. Mild degenerative spurring is present on both sides. Recommend outpatient orthop edic follow-up. 2. No acute osseous abnormality seen.
== END 2021-09-14 14:10 | disposition home or self-care (01) ==
LOC: EC 10:16
DX: M79.605 Pain in left leg (principal); F17.200 Nicotine dependence, unspecified, uncomplicated
CPT/HCPCS: 73502

== ENCOUNTER 2024-08-16 18:42 | Emergency (ER) | payer BC, OTHER ==
[2024-08-16] MEDS ORDERED: LIDOCAINE 1% INJ 10MG/ML (20 ML MDV) SQ ONE (19:53)
--- NOTE | 2024-08-16 19:55 | ED ---
Skin/Abscess/FB HPI - General Chief complaint: Skin/Abscess/Foreign Body Stated complaint: cyst Time Seen by Provider: 08/16/24 19:13 Source: patient, RN notes reviewed Mode of arrival: ambulatory Limitations: no limitations - History of Present Illness Initial comments: This is a 43-year-old male presented emergency department with complaints of an abscess to his right groin that has been there for approximately 1 week. He states that the area is abutting emesis from symptoms close. He states that some these have been similar before however he was able to treat any infection at home. Denies fevers, chills, nausea, vomiting. - Related Data Previous Rx's Medication Instructions Recorded Lidocaine 5% Patch [Lidoderm 5% 1 patch TOPICAL DAILY PRN 7 Days 09/14/21 Patch] #7 patch Clindamycin [Cleocin] 450 mg PO Q8H #30 cap 08/16/24 Allergies Allergy/AdvReac Type Severity Reaction Status Date / Time No Known Allergies Allergy Verified 08/16/24 19:03 Review of Systems ROS Statement: Those systems with pertinent positive or pertinent negative responses have been documented in the HPI. ROS Other: All systems not noted in ROS Statement are negative. Past Medical History Past Medical History: No Reported History History of Any Multi-Drug Resistant Organisms: None Reported Past Surgical History: No Surgical Hx Reported Past Psychological History: Anxiety Smoking Status: Current every day smoker Past Alcohol Use History: Occasional Past Drug Use History: Marijuana General Exam Limitations: no limitations General appearance: alert, in no apparent distress Neck exam: Present: normal inspection. Absent: tenderness, meningismus, lymphadenopathy Respiratory exam: Present: normal lung sounds bilaterally. Absent: respiratory distress, wheezes, rales, rhonchi, stridor Cardiovascular Exam: Present: regular rate, normal rhythm, normal heart sounds. Absent: systolic murmur, diastolic murmur, rubs, gallop, clicks GI/Abdominal exam: Present: soft, normal bowel sounds. Absent: distended, tenderness, guarding, rebound, rigid exam: Present: other (pelvic asbcess with surrounding cellulitis, active serous drainage) Course Vital Signs 08/16/24 08/16/24 19:01 20:29 Temperature 98.3 F 98 F Pulse Rate 95 87 Respiratory 17 16 Rate Blood Pressure 127/88 122/84 O2 Sat by Pulse 98 96 Oximetry Medical Decision Making - Medical Decision Making Was pt. sent in by a medical professional or institution ([facility], [employer], urgent care, hospital, or [facility]...) When possible be specific @ -No Did you speak to anyone other than the patient for history (EMS, parent, family, police, friend...)? What history was obtained from this source @ -No Did you review nursing and triage notes (agree or disagree)? Why? @ -I reviewed and agree with nursing and triage notes Were old charts reviewed (outside hosp., previous admission, EMS record, old EKG, old radiological studies, urgent care reports/EKG's, [facility] records)? Report findings @ -No old charts were reviewed Differential Diagnosis (chest pain, altered mental status, abdominal pain women, abdominal pain men, vaginal bleeding, weakness, fever, dyspnea, syncope, headache, dizziness, GI bleed, back pain, seizure, CVA, palpatations, mental health, musculoskeletal)? @ -Abscess, cellulitis, Demarco's gangrene, this list is not all inclusive EKG interpreted by me (3pts min.). @ -None X-rays interpreted by me (1pt min.). @ -None done CT interpreted by me (1pt min.). @ -None done U/S interpreted by me (1pt. min.). @ -None done What testing was considered but not performed or refused? (CT, X-rays, U/S, labs)? Why? @ -None What meds were considered but not given or refused? Why? @ -None Did you discuss the management of the patient with other professionals (professionals i.e. [facility], [employer], lab, RT, psych nurse, social work professor, clinical research monitor, teacher, special skills officer, caseworker)? Give summary @ -No Was smoking cessation discussed for >3mins.? @ -No Was critical care preformed (if so, how long)? @ -No Were there social determinants of health that impacted care today? How? (Homelessness, low income, unemployed, alcoholism, drug addiction, transportation, low edu. Level, literacy, decrease access to med. care, [facility], rehab)? @ -No Was there de-escalation of care discussed even if they declined (Discuss DNR or withdrawal of care, Hospice)? DNR status @ -No What co-morbidities impacted this encounter? (DM, HTN, Smoking, COPD, CAD, Cancer, CVA, ARF, Chemo, Hep., AIDS, mental health diagnosis, sleep apnea, morbid obesity)? @ -None Was patient admitted / discharged? Hospital course, mention meds given and route, prescriptions, significant lab abnormalities, going to OR and other pertinent info. @ -Discharge. 39 year old male presented emergency room with abscess. Patient states that since he changes been Emergency Department the abscess opened on his own has been draining. Exam reveals a draining abscess with surrounding cellulitis. Area is mildly tender to the touch. His initial vitals are stable. Attempted to needle aspirate however unsuccessful. Patient's ride with antibiotics instructed to continue warm compresses. Case discussed with Dr. Ron Undiagnosed new problem with uncertain prognosis? @ -No Drug Therapy requiring intensive monitoring for toxicity (Heparin, Nitro, Insulin, Cardizem)? @ -No Were any procedures done? @ -No Diagnosis/symptom? @ -abscess with surrounding cellulitis Acute, or Chronic, or Acute on Chronic? @ -acute Uncomplicated (without systemic symptoms) or Complicated (systemic symptoms)? @ -uncomplicated Side effects of treatment? @ -No Exacerbation, Progression, or Severe Exacerbation? @ -No Poses a threat to life or bodily function? How? (Chest pain, [place], [place], pneumonia, PE, COPD, DKA, ARF, appy, cholecystitis, CVA, Diverticulitis, Homicidal, Suicidal, threat to staff... and all critical care pts) @ -No Disposition Clinical Impression: Abscess, Cellulitis Disposition: HOME SELF-CARE Condition: Good Instructions (If sedation given, give patient instructions): Cellulitis (ED), Abscess (ED) Additional Instructions: Please return to the Emergency Department if symptoms worsen or any other concerns. Complete full course of antibiotics as prescribed. Continue warm compresses at least 4-6 times a day for 20 minutes at a time. Prescriptions: Clindamycin [Cleocin] 450 mg PO Q8H #30 cap Is patient prescribed a controlled substance at d/c from ED?: No Referrals: Mio Valle MD [Primary Care Provider] - 1-2 days Time of Disposition: 20:00
[2024-08-16] MEDS: ACETAMINOPHEN TAB 500 MG TAB PO STA (20:01)
[2024-08-16] MEDS: CLINDAMYCIN 150 MG CAP PO STA (20:01)
[2024-08-16 20:32] VITALS: BP 122/84; PULSE 87; RESP 16; TEMP 98
== END 2024-08-16 20:31 | disposition home or self-care (01) ==
LOC: EC 18:42
DX: L02.214 Cutaneous abscess of groin (principal); F17.200 Nicotine dependence, unspecified, uncomplicated
CPT/HCPCS: 99282